=== PATIENT | female | born 1970 | race Caucasian/White ===

== ENCOUNTER 2022-07-30 15:08 | Emergency (ER) | payer OTHER, SELFPAY ==
[2022-07-30 15:18] VITALS: BP 147/87; PULSE 96; RESP 16; TEMP 36.6; O2SAT 100
--- NOTE | 2022-07-30 15:50 | ED.URI ---
HPI - URI/Sore Throat General Chief Complaint: Upper Respiratory Infection Stated Complaint: Sinus Congestion/Fever Time Seen by Provider: 07/30/22 15:54 Source: patient, RN notes reviewed and old records reviewed Mode of arrival: ambulatory Limitations: no limitations History of Present Illness HPI Narrative: 51 year old female who presents to [facility] with complaints of sinus congestion and drainage,sore throat and fevers since Thursday. Patient reports that she has been taking Sudafed and Claritin for her symptoms without resolution. Patiet reports that she took home COVID tests on Thursday and Thursday which were negative. Patient also reports some cough with expectoration of clear mucous, denies any shortness of breath. MD elicited complaint: fever, cough, sore throat, rhinorrhea and nasal congestion Onset (ago): day(s) (5) Able to tolerate fluids by mouth: Yes Treatments prior to arrival: other (sudafed and Claritin) Related Data Home Medications Medication Instructions Recorded Confirmed levothyroxine 175 mcg capsule 175 mcg PO DAILY 10/07/19 Allergies Allergy/AdvReac Type Severity Reaction Status Date / Time No Known Allergies Allergy Unknown Verified 07/30/22 15:21 Review of Systems Review of Systems: CONSTITUTIONAL: Positive for fevers,, chills, or sweats. EYES: Denies visual changes, redness, or discharge. ENT: Positive for rhinorrhea, congestion, sore throat, no otalgia. CARDIOVASCULAR: Denies chest pain, palpitations, or edema. RESPIRATORY: positive for cough no dyspnea. GASTROINTESTINAL: Denies abdominal pain, nausea, vomiting, or diarrhea. GENITOURINARY: Denies dysuria or hematuria. SKIN: Denies rash or itching. MUSCULOSKELETAL: Denies back pain, joint pain, or myalgia. NEUROLOGIC: Denies headache, numbness, or weakness. PSYCHIATRIC: Denies anxiety or depression. All systems reviewed & are unremarkable except as noted in HPI and below PMFSH Past Medical History Medical History (Updated 07/31/22 @ 00:01 by Jose Armando Li) ADHD Hypothyroidism Surgical History Surgical History (Updated 08/03/22 @ 15:27 by Love Whiting NP) No pertinent past surgical history Social History Social History (Updated 08/03/22 @ 15:28 by Love Whiting NP) Smoking status: Never smoker Alcohol intake: current Alcohol use details: social Substance use type: does not use Living arrangements: with family Gender identity (if verbalized by the patient): Female Comments At time of signature, agree with nursing past medical, surgical, social and family history. There is no relevant family history pertinent to the presenting complaint Exam Narrative: GENERAL: Well-appearing, well-nourished, and in no acute distress. HEAD: Normocephalic, atraumatic. EYES: PERRLA and EOMI. ENT: Nares red with clear rhinorrhea no epistaxis. Mucous membranes moist.TM's normal with dull light reflex, throat with mild redness no lesions or swelling post nasal drainage. NECK: Supple. no lymphadenopathy CHEST: Clear to auscultation. No respiratory distress.SAO2 100% on room air HEART: Regular rate and rhythm. No murmur heard. Normal peripheral pulses. ABDOMEN: Soft, nontender, nondistended, normal active bowel sounds. EXTREMITIES: Normal range of motion. No edema. SKIN: Warm, dry, no rash. NEURO: No focal deficits. Alert and oriented x3. Course Course Level of Care: Express Care Visit Vital Signs Vital signs: Vital Signs Temperature 36.6 C 07/30/22 15:18 Pulse Rate 96 07/30/22 15:18 Respiratory Rate 16 07/30/22 15:18 Blood Pressure 147/87 H 07/30/22 15:18 Pulse Oximetry 100 07/30/22 15:18 Oxygen Delivery Room Air 07/30/22 15:18 Temperature 36.6 C 07/30/22 15:18 Pulse Rate 96 07/30/22 15:18 Respiratory Rate 16 07/30/22 15:18 Blood Pressure 147/87 H 07/30/22 15:18 Pulse Oximetry 100 07/30/22 15:18 Oxygen Delivery Room Air 07/30/22 15:18 MDM - URI/Sore Throat Diff
--- NOTE | 2022-07-30 16:10 | ED_ITS ---
HPI - URI/Sore Throat General Chief Complaint: Upper Respiratory Infection Stated Complaint: Sinus Congestion/Fever Time Seen by Provider: 07/30/22 15:54 Source: patient, RN notes reviewed and old records reviewed Mode of arrival: ambulatory Limitations: no limitations Related Data Home Medications Medication Instructions Recorded Confirmed levothyroxine 175 mcg capsule 175 mcg PO DAILY 10/07/19 Allergies Allergy/AdvReac Type Severity Reaction Status Date / Time No Known Allergies Allergy Unknown Verified 07/30/22 15:21 [facility] Past Medical History Medical History ADHD Hypothyroidism Course Vital Signs Vital signs: Vital Signs Temperature 36.6 C 07/30/22 15:18 Pulse Rate 96 07/30/22 15:18 Respiratory Rate 16 07/30/22 15:18 Blood Pressure 147/87 H 07/30/22 15:18 Pulse Oximetry 100 07/30/22 15:18 Oxygen Delivery Room Air 07/30/22 15:18 Temperature 36.6 C 07/30/22 15:18 Pulse Rate 96 07/30/22 15:18 Respiratory Rate 16 07/30/22 15:18 Blood Pressure 147/87 H 07/30/22 15:18 Pulse Oximetry 100 07/30/22 15:18 Oxygen Delivery Room Air 07/30/22 15:18 Discharge Plan Discharge Clinical Impression: Upper respiratory infection with cough and congestion Patient Disposition: Home, Self-Care Condition: Stable Instructions: Antibiotic Form Additional Instructions: Increase fluids especially juices and water [id number] cough and cold medicine of your choice for your symptoms Tylenol or ibuprofen for any fever pain Zyrtec Claritin or Kami daily Steroids as directed--take with food heat to the face 20-30 minutes 4-6 times a day for pain Salt water gargles, throat lozenges or throat sprays as desired Antibiotic as directed--finished the medication If your symptoms persist, change or worsen significantly before you can contact your personal physician then please, without delay, go to the emergency department for further evaluation. Follow-up with PCP in 7-10 days or sooner if needed Follow up with PCP soon in regards to your blood pressure which is elevated above threshold for referral. Blood pressure above 120/80 may indicate pre- hypertension. Prescriptions: No Action levothyroxine 175 mcg Capsule 175 mcg PO DAILY Follow-up/Referrals: Garza,Olena Pena APN [Primary Care Provider] - [facility] Coma Scale Eyes: Open Verbal: Oriented and Alert Motor: Follows Commands [place] Coma Total Score: 15
== END 2022-07-30 16:20 | disposition home or self-care (01) ==
PROVIDERS: Emergency Provider Registered Nurse; PCP Nurse Practitioner Family
DX: J06.9 Acute upper respiratory infection, unspecified (principal); R05.9 Cough, unspecified; E03.9 Hypothyroidism, unspecified
CPT/HCPCS: 99213; G0463

== ENCOUNTER 2022-12-14 13:10 | Emergency (ER) | payer OTHER, SELFPAY ==
[2022-12-14 13:21] VITALS: BP 129/69; PULSE 78; RESP 16; TEMP 36.9; O2SAT 100
[2022-12-14 13:40] VITALS: BP 137/71; PULSE 67
[2022-12-14 13:42] VITALS: BP 137/79; PULSE 72
[2022-12-14 13:44] VITALS: PULSE 82
--- NOTE | 2022-12-14 13:55 | ECG_ITS ---
Measurements Intervals Bonnie Rate: 64 P: 40 [place]: 167 QRS: 21 QRSD: 85 T: 12 QT: 353 QTc: 365 Interpretive Statements SINUS RHYTHM WITHIN NORMAL LIMITS INTERPRETATION BASED ON A DEFAULT AGE OF 40 YEARS NO PREVIOUS ECG AVAILABLE FOR COMPARISON Electronically Signed On 12-15-2022 11:54:03 OPERATIONS RESEARCH DIRECTOR by Travis Mejía M.D.
--- NOTE | 2022-12-14 13:55 | ED.GENADULT ---
HPI - General Adult General Chief complaint: Dizziness Stated complaint: Dizziness Source: patient Mode of arrival: ambulatory Limitations: no limitations History of Present Illness HPI narrative: Patient presents for evaluation of sensation that the room is spinning. Symptom onset 3 days ago. She got up from sleep to go to the restroom when she 1st noticed her symptoms. She has felt ?off? since that time. No history of similar symptoms. She denies any fever, chills, nausea, vomiting, cough, shortness of breath. She does have episodes where she feels her heart beating. Last episode was a few days ago. She is unable to provide me with the frequency with which she has experienced symptoms in the past. Symptoms usually last a few seconds. Stress level at home is manageable. She is on levothyroxine at home. States last labs were performed 1-2 months ago. Related Data Home Medications Medication Instructions Recorded Confirmed levothyroxine 175 mcg capsule 175 mcg PO DAILY 10/07/19 12/14/22 Allergies Allergy/AdvReac Type Severity Reaction Status Date / Time No Known Allergies Allergy Unknown Verified 12/14/22 13:59 Review of Systems Review of Systems: CONSTITUTIONAL: Denies fever, chills, or sweats. EYES: Denies visual changes, redness, or discharge. ENT: Denies rhinorrhea, congestion, sore throat, or otalgia. CARDIOVASCULAR: Denies chest pain, palpitations, or edema. RESPIRATORY: Denies cough or dyspnea. GASTROINTESTINAL: Denies abdominal pain, nausea, vomiting, or diarrhea. GENITOURINARY: Denies dysuria or hematuria. SKIN: Denies rash or itching. MUSCULOSKELETAL: Denies back pain, joint pain, or myalgia. NEUROLOGIC: Reports sensation that the room is spinning. Denies headache, numbness, or weakness. PSYCHIATRIC: Denies anxiety or depression. [facility] Past Medical History Medical History ADHD Hypothyroidism Surgical History Surgical History No pertinent past surgical history Family History Family History Mother Family history non-contributory Social History Social History Smoking status: Never smoker Alcohol intake: current Alcohol use details: social Substance use type: does not use Living arrangements: with family Gender identity (if verbalized by the patient): Female Sexual Orientation (if Verbalized by the Patient): Straight or Heterosexual Spiritual care concerns: No Exam Narrative: GENERAL: Well-appearing, well-nourished, and in no acute distress. HEAD: Normocephalic, atraumatic. EYES: PERRLA and EOMI. ENT: Nares clear, no rhinorrhea or epistaxis. Mucous membranes moist. Oropharynx without tonsillar hypertrophy exudate or other lesions. Bilateral TMs pearly cope nonbulging. There is middle ear fluid noted bilaterally NECK: Supple. No adenopathy or masses. No carotid bruits or JVD CHEST: Clear to auscultation. No respiratory distress. No wheezes rales or rhonchi HEART: Regular rate and rhythm. No murmur heard. Normal peripheral pulses. ABDOMEN: Soft, nontender, nondistended, normal active bowel sounds. EXTREMITIES: Normal range of motion. No edema. SKIN: Warm, dry, no rash. NEURO: No focal deficits. Alert and oriented x3. Normal finger to nose exam. Able to perform rapid alternating movement without difficulty. Comprehensive neurologic exam intact. PSYCH: Normal mood and affect. Course Course Emergency Course: This is a 52-year-old female who presented for evaluation of sensation of room spinning. EKG with no acute ischemic changes. No orthostasis. No evidence of UTI. Blood sugar normal. Exam consistent with vertigo. Given meclizine and symptoms markedly improved. Follow up with primary provider. Go to the ER for neurologic anthony
[2022-12-14] MEDS: MECLIZINE HCL 25 MG TABLET PO (14:02)
[2022-12-19 14:55] LABS: Glucose Point of Care 107 mg/dl (65-105)
== END 2022-12-14 15:15 | disposition home or self-care (01) ==
PROVIDERS: Emergency Provider Nurse Practitioner; PCP Nurse Practitioner Family
DX: R42 Dizziness and giddiness (principal); E03.9 Hypothyroidism, unspecified
CPT/HCPCS: 81003; 82948; 93005; 99213; A9270; G0463